=== PATIENT | female | born 2000 | race American Indian/Alaskan Native ===

== ENCOUNTER 2019-05-29 13:50 | Emergency (ER) | payer OTHER ==
[2019-05-29 15:03] VITALS: BP 98/65
--- NOTE | 2019-05-29 15:06 | Emergency Department Report ---
Chief Complaint: Vaginal Bleeding Stated Complaint: 16WKS HEAVY BLOOD FLOW Time Seen by Provider: 05/29/19 15:02 - HPI History of Present Illness: 18 y/o f p/w a cc of vag bleeding. Pt is ~ 16 weeks GA and developed vag bleeding this am. Pt denies recent intercourse or abd pain. Pt has used one maxi-pad - Exam Vital Signs: Vital Signs 05/29/19 15:02 Temperature 98.6 F Pulse Rate 85 Blood Pressure 98/65 [Right] O2 Sat by Pulse 98 Oximetry MSE screening note: Focused history and physical exam performed. Due to findings the following was ordered: cbc, shcg quant, abo/rh pelvic u/s ED Disposition for MSE Condition: Stable
[2019-05-29 16:21] LABS: Basophils # (Auto) 0.1 K/mm3 (0.0-0.1); Basophils % (Auto) 0.6 % (0.0-1.8); Eosinophils # (Auto) 0.3 K/mm3 (0.0-0.4); Eosinophils % (Auto) 2.7 % (0.0-4.3); Lymphocytes # (Auto) 2.1 K/mm3 (1.2-5.4); Lymphocytes % (Auto) 21.1 % (13.4-35.0); Mean Corpuscular HGB Conc 35 % (30-34); Mean Corpuscular Volume 87 fl (79-97); Monocytes # (Auto) 0.4 K/mm3 (0.0-0.8); Monocytes % (Auto) 4.1 % (0.0-7.3); Platelet Count 308 K/mm3 (140-440); Red Blood Count 3.89 M/mm3 (3.65-5.03); Red Cell Distribution Width 13.5 % (13.2-15.2)
--- NOTE | 2019-05-29 19:01 | Ultrasound Report ---
ULTRASOUND OBSTETRIC INDICATION / CLINICAL INFORMATION: vaginal bleeding. Clinical Gestational Age (GA): 15 weeks 6 days TECHNIQUE: Transabdominal. COMPARISON: None available. FINDINGS: There is a single intrauterine . Biparietal Diameter = 2.72 cm = 14 weeks, 6 day(s). Head Circumference = 10.52 cm = 15 weeks, 0 day(s). Abdominal Circumference = 8.76 cm = 15 weeks, 0 day(s). Femur Length = 0.93 cm = 12 weeks, 5 day(s). Average Ultrasound Age (AUA) = 14 weeks, 3 day(s). Heart Rate: 166 beats per minute. Estimated Weight in grams (if calculated): Not calculated Estimated Weight Growth Percentile (if calculated): Not calculated Position: breech. Cervix: closed. Length in cm (if measured): 3.2 cm Placenta: Left lateral and free of the os. Amniotic Fluid Volume: normal Amniotic Fluid Index (JACQUI) in cm (if calculated): Not calculated. Maternal Adnexa: No significant abnormality. Along the anterior aspect of the uterus there is a crescent-shaped solid appearing masslike area bruce uring approximately 9.7 x 1.7 x 2.5 cm. The appearance is worrisome for hemorrhage possibly placental abruption. IMPRESSION: 1. Single, living intrauterine with estimated sonographic age of 14 weeks, 3 day(s). The f emur length is measuring slightly smaller than the remainder of the parameters. 2. Possible placental abruption. There is a large crescent shaped isoechoic mass very concerning for hemorrhage and/or placental abruption. Clinical correlation recommended. COMMUNICATION: Time of Communication: [id number] [employer] Licensed Practitioner Receiving Report: brittney sutherland Signer Name: Pamela Wilson MD Signed: 05/29/2019 6:57 PM Workstation Name: [email or web address]
[2019-05-29 19:45] LABS: INR 1.11 (0.87-1.13)
[2019-05-29 19:46] LABS: Partial Thromboplastin Time 29.2 Sec. (24.2-36.6)
--- NOTE | 2019-05-29 20:07 | Emergency Department Report ---
ED HPI - General Chief complaint: Vaginal Bleeding Stated complaint: 16WKS HEAVY BLOOD FLOW Time Seen by Provider: 05/29/19 15:02 Source: patient Mode of arrival: Ambulatory Limitations: No Limitations - History of Present Illness Initial comments: 18-year-old -[place] female patient who believes herself to be around 16 weeks presents with complaints of vaginal bleeding and intermittent lower abdominal cramping pain x today. Patient is G2, P1. Patient states she has not seen an HOUSEHOLD COORDINATOR to this point in her . She rates her current pain as a 4/10 in severity and states she has gone through 1 pad today. Patient denies complications with her prior . She denies any vaginal discharge, dyspareunia, fever, hematuria, dysuria, or urinary frequency. MD Complaint: abdominal pain, vaginal bleeding -: Sudden Location: pelvis Severity scale (0 -10): 4 Quality: cramping Improves with: none - Related Data Allergies Allergy/AdvReac Type Severity Reaction Status Date / Time No Known Allergies Allergy Unverified 05/29/19 13:54 ED Review of Systems ROS: Stated complaint: 16WKS HEAVY BLOOD FLOW Other details as noted in HPI Comment: All other systems reviewed and negative Gastrointestinal: abdominal pain. denies: nausea, vomiting, diarrhea, constipation, hematemesis, melena, hematochezia Genitourinary: denies: urgency, dysuria, frequency, hematuria, discharge, dyspareunia Hematological/Lymphatic: denies: easy bleeding ED Past Medical Hx - Past Medical History Previous Medical History?: No - Surgical History Past Surgical History?: No - Social History Smoking Status: Never Smoker Substance Use Type: None ED Physical Exam - General Limitations: No Limitations General appearance: alert, in no apparent distress - Head Head exam: Present: atraumatic, normocephalic - Eye Eye exam: Present: normal appearance - ENT ENT exam: Present: mucous membranes moist - Respiratory Respiratory exam: Present: normal lung sounds bilaterally. Absent: respiratory distress - Cardiovascular Cardiovascular Exam: Present: regular rate, normal rhythm. Absent: systolic murmur, diastolic murmur, rubs, gallop - GI/Abdominal GI/Abdominal exam: Present: soft, tenderness (Suprapubic), normal bowel sounds. Absent: distended, guarding, rebound, rigid, organomegaly, mass - Speculum exam: Present: vaginal bleeding. Absent: cervical discharge - Extremities Exam Extremities exam: Present: normal inspection - Back Exam Back exam: Present: normal inspection - Neurological Exam Neurological exam: Present: alert, oriented X3 - Psychiatric Psychiatric exam: Present: normal affect, normal mood - Skin Skin exam: Present: warm, dry, intact, normal color. Absent: rash ED Course Vital Signs 05/29/19 15:02 Temperature 98.6 F Pulse Rate 85 Blood Pressure 98/65 [Right] O2 Sat by Pulse 98 Oximetry ED Medical Decision Making - Lab Data Result diagrams: 05/29/19 15:56 Lab Results 05/29/19 05/29/19 05/29/19 Range/Units 15:56 15:56 15:56 WBC 9.7 (4.5-11.0) K/mm3 RBC 3.89 (3.65-5.03) M/mm3 Hgb 12.0 (10.1-14.3) gm/dl Hct 34.0 (30.3-42.9) % MCV 87 (79-97) fl MCH 31 (28-32) pg MCHC 35 H (30-34) % RDW 13.5 (13.2-15.2) % Plt Count 308 (140-440) K/mm3 Lymph % (Auto) 21.1 (13.4-35.0) % Jay % (Auto) 4.1 (0.0-7.3) % Eos % (Auto) 2.7 (0.0-4.3) % Baso % (Auto) 0.6 (0.0-1.8) % Lymph # 2.1 (1.2-5.4) K/mm3 Jay # 0.4 (0.0-0.8) K/mm3 Eos # 0.3 (0.0-0.4) K/mm3 Baso # 0.1 (0.0-0.1) K/mm3 Seg Neutrophils % 71.5 H (40.0-70.0) % Seg Neutrophils # 6.9 (1.8-7.7) K/mm3 PT (12.2-14.9) Sec. INR (0.87-1.13) APTT (24.2-36.6) Sec. HCG, Quant 66773 H (0-4) mIU/mL Blood Type O POSITIVE 05/29/19 05/29/19 Range/Units 19:21 19:21 WBC (4.5-11.0) K/mm3 RBC (3.65-5.03) M/mm3 Hgb (10.1-14.3) gm/dl Hct (30.3-42.9) % MCV (79-97) fl MCH (28-32) pg MCHC (30-34) % RDW (13.2-15.2) % Plt Count (140-440) K/mm3 Lymph % (Auto) (13.4-35.0) % Jay % (Auto) (0.0-7.3) % Eos % (Auto) (0.0-4.3) % Baso % (Auto) (0.0-1.8) % Lymph # (1.2-5.4) K/mm3 Jay # (0.0-0.8) K/mm3 Eos # (0.0-0.4) K/mm3 Baso # (0.0-0.1) K/mm3 Seg Neutrophils % (40.0-70.0) % Seg Neutrophils # (1.8-7.7) K/mm3 PT 14.4 (12.2-14.9) Sec. INR 1.11 (0.87-1.13) APTT 29.2 (24.2-36.6) Sec. HCG, Quant (0-4) mIU/mL Blood Type O POSITIVE - Radiology Data Radiology results: report reviewed ULTRASOUND OBSTETRIC INDICATION / CLINICAL INFORMATION: vaginal bleeding. Clinical Gestational Age (GA): 15 weeks 6 days TECHNIQUE: Transabdominal. COMPARISON: None available. FINDINGS: There is a single intrauterine . Biparietal Diameter = 2.72 cm = 14 weeks, 6 day(s). Head Circumference = 10.52 cm = 15 weeks, 0 day(s). Abdominal Circumference = 8.76 cm = 15 weeks, 0 day(s). Femur Length = 0.93 cm = 12 weeks, 5 day(s). Average Ultrasound Age (AUA) = 14 weeks, 3 day(s). Heart Rate: 166 beats per minute. Estimated Weight in grams (if calculated): Not calculated Estimated Weight Growth Percentile (if calculated): Not calculated Position: breech. Cervix: closed. Length in cm (if measured): 3.2 cm Placenta: Left lateral and free of the os. Amniotic Fluid Volume: normal Amniotic Fluid Index (JACQUI) in cm (if calculated): Not calculated. Maternal Adnexa: No significant abnormality. Along the anterior aspect of the uterus there is a crescent-shaped solid appearing masslike area measuring approximately 9.7 x 1.7 x 2.5 cm. The appearance is worrisome for hemorrhage possibly placental abruption. IMPRESSION: 1. Single, living intrauterine with estimated sonographic age of 14 weeks, 3 day(s). The femur length is measuring slightly smaller than the remainder of the parameters. 2. Possible placental abruption. There is a large crescent shaped isoechoic mass very concerning for hemorrhage and/or placental abruption. Clinical correlation recommended. - Medical Decision Making 18-year-old female here today with vaginal bleeding and intermittent lower abdominal pain and . Labs are normal and UA is negative for UTI. Ultrasound shows viable 14-week 3-day with placental abruption. Discussed ultrasound findings with Dr. Graff, HOUSEHOLD COORDINATOR, who states ultrasound findings are not consistent with a placental abruption due to the gestational age being less than 20 weeks. She recommends patient be on bed rest and pelvic rest and follow-up with her office tomorrow. Patient is nontoxic appearing and stable for discharge home. Her vitals are normal. I discussed importance of bed rest and pelvic rest with patient in need for follow-up with Dr. Hernandes as soon as possible. I also discussed the possibility of patient having a threatened miscarriage. Patient verbalizes understanding Critical care attestation.: If time is entered above; I have spent that time in minutes in the direct care of this critically ill patient, excluding procedure time. ED Disposition Clinical Impression: Vaginal bleeding during , Threatened miscarriage Disposition: DC-01 TO HOME OR SELFCARE Is pt being admited?: No Condition: Stable Instructions: Threatened Miscarriage (ED) Referrals: BROWN HERNANDES MD [Staff Physician] - 24 Hours
[2019-05-29 20:30] LABS: Bilirubin,Urine NEG (Negative); Blood,Urine MOD (Negative); Color,Urine Straw (Yellow); Protein,Urine <15 mg/dL mg/dL (Negative); Urobilinogen,Urine < 2.0 mg/dL (<2.0)
== END 2019-05-29 21:18 | disposition home or self-care (01) ==
LOC: ED 13:50
DX: O20.0 Threatened abortion (principal); Z3A.14 14 weeks gestation of pregnancy
CPT/HCPCS: 36415; 76805; 81001; 84702; 85025; 85610; 85730; 86850; 86900; 86901

== ENCOUNTER 2019-12-10 06:38 | Emergency (ER) | payer MEDICAID ==
[2019-12-10 07:42] LABS: Basophils # (Auto) 0.1 K/mm3 (0.0-0.1); Basophils % (Auto) 0.5 % (0.0-1.8); Eosinophils # (Auto) 0.2 K/mm3 (0.0-0.4); Eosinophils % (Auto) 1.8 % (0.0-4.3); Hematocrit 40.9 % (30.3-42.9); Hemoglobin 13.7 gm/dl (10.1-14.3); Lymphocytes # (Auto) 1.9 K/mm3 (1.2-5.4); Lymphocytes % (Auto) 16.8 % (13.4-35.0); Mean Corpuscular HGB Conc 34 % (30-34); Mean Corpuscular Volume 86 fl (79-97); Monocytes # (Auto) 0.8 K/mm3 (0.0-0.8); Monocytes % (Auto) 6.6 % (0.0-7.3); Platelet Count 294 K/mm3 (140-440); Red Blood Count 4.76 M/mm3 (3.65-5.03); Red Cell Distribution Width 14.5 % (13.2-15.2)
[2019-12-10 07:46] LABS: Alanine Aminotransferase 13 units/L (7-56); Albumin 4.6 g/dL (3.9-5); BUN/Creatinine Ratio 10; Blood Urea Nitrogen 9 mg/dL (7-17); Calcium 9.8 mg/dL (8.4-10.2); Hemolysis Index 5
[2019-12-10] MEDS ORDERED: ONDANSETRON 4 MG/2 ML INJ IV ONE (08:39)
[2019-12-10] MEDS ORDERED: SODIUM CHLORIDE 0.9% 1000 ML 1,000 ML IV ONE (08:39)
--- NOTE | 2019-12-10 08:43 | Emergency Department Report ---
ED Abdominal Pain HPI - General Chief Complaint: Abdominal Pain Stated Complaint: STOMACH PAIN Source: patient Mode of arrival: Ambulatory Limitations: No Limitations - History of Present Illness Initial Comments: 19-year-old -[place] female presents to the emergency room complaining of 2-day history of abdominal pain with nausea and vomiting. Patient states that the pain is sharp achy and constant. She reports that is everywhere. Patient reports she does drink alcohol but has not recently. She does smoke cigarettes but denies smoking weed. She is 2 para 2 last menstrual period January 12, 2019 and she is currently on Depakote. Patient is requesting water and ice as she feels she is dehydrated. Patient has no past medical history. MD Complaint: abdominal pain Onset/Timin -: days(s) Location: diffuse Severity scale (0 -10): 10 Quality: stabbing, aching, sharp Consistency: constant Improves With: nothing Worsens With: nothing Associated Symptoms: nausea, vomiting. denies: diarrhea, fever - Related Data LMP Date: 11/12/18 (Depo) Previous Rx's Medication Instructions Recorded Last Taken Type Hyoscyamine Subl [Levsin Sl 0.125 0.125 mg SL Q6HR PRN #12 tab 12/10/19 Unknown Rx TAB] Ondansetron [Zofran Odt] 4 mg PO Q8HR PRN #12 tab.rapdis 12/10/19 Unknown Rx Allergies Allergy/AdvReac Type Severity Reaction Status Date / Time sertraline [From Zoloft] Allergy Mild Unknown Verified 12/10/19 10:19 ED Review of Systems ROS: Stated complaint: STOMACH PAIN Other details as noted in HPI Comment: All other systems reviewed and negative Gastrointestinal: abdominal pain, nausea, vomiting ED Past Medical Hx - Past Medical History Previous Medical History?: No - Surgical History Past Surgical History?: No - Social History Smoking Status: Former Smoker Substance Use Type: Alcohol - Medications Home Medications: Home Medications Medication Instructions Recorded Confirmed Last Taken Type Hyoscyamine Subl [Levsin Sl 0.125 0.125 mg SL Q6HR PRN #12 tab 12/10/19 Unknown Rx TAB] Ondansetron [Zofran Odt] 4 mg PO Q8HR PRN #12 tab.rapdis 12/10/19 Unknown Rx ED Physical Exam - General Limitations: No Limitations General appearance: alert, in distress - Head Head exam: Present: atraumatic, normocephalic - Eye Eye exam: Present: normal appearance - ENT ENT exam: Present: mucous membranes dry - Neck Neck exam: Present: normal inspection, full ROM - GI/Abdominal GI/Abdominal exam: Present: soft, tenderness, normal bowel sounds. Absent: distended - Extremities Exam Extremities exam: Present: normal inspection, full ROM - Back Exam Back exam: Present: full ROM, tenderness, CVA tenderness (R), CVA tenderness (L) - Neurological Exam Neurological exam: Present: alert, oriented X3 - Psychiatric Psychiatric exam: Present: normal affect, normal mood - Skin Skin exam: Present: warm, dry, intact, normal color. Absent: rash ED Course Vital Signs 12/10/19 12/10/19 12/10/19 06:49 06:50 08:58 Temperature 97.9 F 98.3 F Pulse Rate 71 71 Respiratory 18 20 Rate Blood Pressure 147/92 Blood Pressure 120/93 [Right] O2 Sat by Pulse 100 100 Oximetry ED Medical Decision Making - Lab Data Result diagrams: 12/10/19 07:09 12/10/19 07:09 - Radiology Data Radiology results: report reviewed [facility] [address] [place] [address] Cat Scan Report Signed Patient: JEREMY KEYES MR#: [id number] : 2000 Acct:[id number] Age/Sex: 19 / F ADM Date: 12/10/19 Loc: ED Attending Dr: Ordering Physician: JI MACHADO Date of Service: 12/10/19 Procedure(s): CT abdomen pelvis w con Accession Number(s): [id number] cc: JI MACHADO CT ABDOMEN AND PELVIS WITH CONTRAST INDICATION: Severe lower abdominal pain. TECHNIQUE: Axial CT images were obtained through the abdomen and pelvis after 100 cc Omni [address] scans at this location are performed using CT dose reduction for ALARA by means of automated exposure control. COMPARISON: None available. FINDINGS: LOWER CHEST: No significant abnormality. LIVER: 1 cm cyst posterior hepatic segment. GALLBLADDER: No significant abnormality. BILE DUCTS: No significant abnormality. PANCREAS: No significant abnormality. SPLEEN: No significant abnormality. ADRENALS: No significant abnormality. RIGHT KIDNEY and URETER: No significant abnormality. LEFT KIDNEY and URETER: No significant abnormality. STOMACH and SMALL BOWEL: Moderate thickening and mucosal enhancement involving terminal ileum characteristic for probable inflammatory bowel disease/Crohn's COLON: No significant abnormality. APPENDIX: Not visualized secondary to paucity of intraabdominal fat and lack of oral contrast PERITONEUM: No free fluid. No free air. No fluid collection. LYMPH NODES: No significant adenopathy. AORTA and ARTERIES: No significant abnormality. IVC and VEINS: No significant abnormality. URINARY BLADDER: No significant abnormality. REPRODUCTIVE ORGANS: No significant abnormality. ADDITIONAL FINDINGS: None. SKELETAL SYSTEM: No significant abnormality. IMPRESSION: 1. Probable terminal ileitis/Crohn's disease. 2. Appendix not visualized. Repeat CT abdomen and pelvis with 90 minute to 2 hour delayed oral contrast may be useful to better characterize the Crohn's disease and to exclude appendicitis if clinical concern for appendicitis remains high. Signer Name: Maverick Tiwari MD Signed: 12/10/2019 11:10 AM Workstation Name: [id number] Transcribed By: TL Dictated By: Maverick Tiwari MD Electronically Authenticated By: Maverick Tiwari MD Signed Date/Time: 12/10/19 1110 DD/ 1105 TD/TT: [facility] [address] [place] [address] Cat Scan Report Signed with Addenda Patient: JEREMY KEYES MR#: [id number] : 2000 Acct:[id number] Age/Sex: 19 / F ADM Date: 12/10/19 Loc: ED Attending Dr: Ordering Physician: JI MACHADO Date of Service: 12/10/19 Procedure(s): CT abdomen pelvis w con Accession Number(s): [id number] cc: JI MACHADO ADDENDUM A normal appendix is seen within the subhepatic region on axial image 269. Repeat study with oral contrast would only be useful to evaluate the terminal ileum. I do not see any CT evidence for appendicitis or other acute inflammatory process Signer Name: Maverick Tiwari MD Signed: 12/10/2019 11:48 AM Workstation Name: [id number] Addendum Transcribed By: TL Addendum Dictated By: Maverick Tiwari MD Addendum Electronically Authenticated By: Maverick Tiwari MD Addendum Signed Date/Time: 12/10/19 1148 DD/ TD/TT: / CT ABDOMEN AND PELVIS WITH CONTRAST INDICATION: Severe lower abdominal pain. TECHNIQUE: Axial CT images were obtained through the abdomen and pelvis after 100 cc Omni [address] scans at this location are performed using CT dose reduction for ALARA by means of automated exposure control. COMPARISON: None available. FINDINGS: LOWER CHEST: No significant abnormality. LIVER: 1 cm cyst posterior hepatic segment. GALLBLADDER: No significant abnormality. BILE DUCTS: No significant abnormality. PANCREAS: No significant abnormality. SPLEEN: No significant abnormality. ADRENALS: No significant abnormality. RIGHT KIDNEY and URETER: No significant abnormality. LEFT KIDNEY and URETER: No significant abnormality. STOMACH and SMALL BOWEL: Moderate thickening and mucosal enhancement involving terminal ileum characteristic for probable inflammatory bowel disease/Crohn's COLON: No significant abnormality. APPENDIX: Not visualized secondary to paucity of intraabdominal fat and lack of oral contrast PERITONEUM: No free fluid. No free air. No fluid collection. LYMPH NODES: No significant adenopathy. AORTA and ARTERIES: No significant abnormality. IVC and VEINS: No significant abnormality. URINARY BLADDER: No significant abnormality. REPRODUCTIVE ORGANS: No significant abnormality. ADDITIONAL FINDINGS: None. SKELETAL SYSTEM: No significant abnormality. IMPRESSION: 1. Probable terminal ileitis/Crohn's disease. 2. Appendix not visualized. Repeat CT abdomen and pelvis with 90 minute to 2 hour delayed oral contrast may be useful to better characterize the Crohn's disease and to exclude appendicitis if clinical concern for appendicitis remains high. Signer Name: Maverick Tiwari MD Signed: 12/10/2019 11:10 AM Workstation Name: [id number] Transcribed By: TL Dictated By: Maverick Tiwari MD Electronically Authenticated By: Maverick Tiwari MD Signed Date/Time: 12/10/19 1110 DD/ 1105 TD/TT: [facility] [address] [place] [address] Cat Scan Report Signed Patient: JEREMY KEYES MR#: [id number] : 2000 Acct:[id number] Age/Sex: 19 / F ADM Date: 12/10/19 Loc: ED Attending Dr: Ordering Physician: JI MACHADO Date of Service: 12/10/19 Procedure(s): CT abdomen pelvis wo con Accession Number(s): [id number] cc: JI MACHADO CT ABDOMEN AND PELVIS WITHOUT CONTRAST INDICATION / CLINICAL INFORMATION: MAIN. TECHNIQUE: Axial CT images were obtained through the abdomen and pelvis without IV contrast. All CT scans at this location are performed using CT dose reduction for ALARA by means of automated exposure control. COMPARISON: Prior CT dated 12/10/2019. FINDINGS: LOWER CHEST: No significant abnormality. LIVER: Stable simple hepatic cyst right hepatic lobe. GALLBLADDER: No significant abnormality. BILE DUCTS: No significant abnormality. PANCREAS: No significant abnormality. SPLEEN: No significant abnormality. ADRENALS: No significant abnormality. RIGHT KIDNEY / URETER: Minimal retained contrast is noted within the collecting system.. LEFT KIDNEY / URETER: Minimal retained contrast is noted within the collecting system. STOMACH / SMALL BOWEL: Previously noted moderate thickening of the terminal ileum is again noted and relatively unchanged from prior. COLON: No significant abnormality. APPENDIX: The appendix is still not well-visualized on this exam. PERITONEUM: No free fluid. No free air. No fluid collection. LYMPH NODES: No significant adenopathy. AORTA / ARTERIES: No significant abnormality. IVC / VEINS: No significant abnormality. URINARY BLADDER: No significant abnormality. REPRODUCTIVE ORGANS: No significant abnormality. ADDITIONAL FINDINGS: None. SKELETAL SYSTEM: No significant abnormality. IMPRESSION: 1. The appendix is still not well-visualized on this exam. 2. Previously noted findings concerning for terminal ileitis/Crohn's disease are similar. Signer Name: Rene Gallego MD Signed: 12/10/2019 2:40 PM Workstation Name: [id number] Transcribed By: Dictated By: RENE GALLEGO Electronically Authenticated By: RENE GALLEGO Signed Date/Time: 12/10/19 1440 DD/ 1433 TD/TT: - Medical Decision Making 19-year-old -[place] female presents to the emergency room complaining of 2-day history of abdominal pain with nausea and vomiting. Patient states that the pain is sharp achy and constant. She reports that is everywhere. Patient reports she does drink alcohol but has not recently. She does smoke cigarettes but denies smoking weed. She is 2 para 2 last menstrual period January 12, 2019 and she is currently on Depakote. Patient is requesting water and ice as she feels she is dehydrated. Patient has no past medical history. IV, normal saline, IV Zofran. CT abdomen with contrast and urine plus hepatic panel. Critical care attestation.: If time is entered above; I have spent that time in minutes in the direct care of this critically ill patient, excluding procedure time. ED Disposition Clinical Impression: Abdominal pain Disposition: DC-01 TO HOME OR SELFCARE Is pt being admited?: No Does the pt Need Aspirin: No Condition: Stable Instructions: Abdominal Pain (ED) Additional Instructions: Please take medications as needed. 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 Be sure to increase your water intake advance your diet as tolerated. Prescriptions: Hyoscyamine Subl [Levsin Sl 0.125 TAB] 0.125 mg SL Q6HR PRN #12 tab PRN Reason: Pain , Severe (7-10) Ondansetron [Zofran Odt] 4 mg PO Q8HR PRN #12 tab.rapdis PRN Reason: Nausea And Vomiting Referrals: PRIMARY CARE, [Primary Care Provider] - 3-5 Days [facility] [Provider Group] - 3-5 Days Forms: Work/School Release Form(ED)
[2019-12-10 09:00] VITALS: BP 120/93
--- NOTE | 2019-12-10 11:15 | Cat Scan Report ---
CT ABDOMEN AND PELVIS WITH CONTRAST INDICATION: Severe lower abdominal pain. TECHNIQUE: Axial CT images were obtained through the abdomen and pelvis after 100 cc Omni [address] scans at this location are performed using CT dose reduction for ALARA by means of automated expos ure control. COMPARISON: None available. FINDINGS: LOWER CHEST: No significant abnormality. LIVER: 1 cm cyst posterior hepatic segment. GALLBLADDER: No significant abnormality. BILE DUCTS: No significant abnormality. PANCREAS: No significant abnormality. SPLEEN: No significant abnormality. ADRENALS: No significant abnormality. RIGHT KIDNEY and URETER: No significant abnormality. LEFT KIDNEY and URETER: No significant abnormality. STOMACH and SMALL BOWEL: Moderate thickening and mucosal enhancement involving terminal ileum charact eristic for probable inflammatory bowel disease/Crohn's COLON: No significant abnormality. APPENDIX: Not visualized secondary to paucity of intraabdominal fat and lack of oral contrast PERITONEUM: No free fluid. No free air. No fluid collection. LYMPH NODES: No significant adenopathy. AORTA and ARTERIES: No significant abnormality. IVC and VEINS: No significant abnormality. URINARY BLADDER: No significant abnormality. REPRODUCTIVE ORGANS: No significant abnormality. ADDITIONAL FINDINGS: None. SKELETAL SYSTEM: No significant abnormality. IMPRESSION: 1. Probable terminal ileitis/Crohn's disease. 2. Appendix not visualized. Repeat CT abdomen and pelvis with 90 minute to [address] may be useful to better characterize the Crohn's disease and to exclude appendicitis if clinical c oncern for appendicitis remains high. Signer Name: Maverick Tiwari MD Signed: 12/10/2019 11:10 AM Workstation Name: [id number]
--- NOTE | 2019-12-10 14:44 | Cat Scan Report ---
CT ABDOMEN AND PELVIS WITHOUT CONTRAST INDICATION / CLINICAL INFORMATION: MAIN. TECHNIQUE: Axial CT images were obtained through the abdomen and pelvis without IV contrast. All CT scans at [facility] location are performed using CT dose reduction for ALARA by means of automated exposure control. COMPARISON: Prior CT dated 12/10/2019. FINDINGS: LOWER CHEST: No significant abnormality. LIVER: Stable simple hepatic cyst right hepatic lobe. GALLBLADDER: No significant abnormality. BILE DUCTS: No significant abnormality. PANCREAS: No significant abnormality. SPLEEN: No significant abnormality. ADRENALS: No significant abnormality. RIGHT KIDNEY / URETER: Minimal retained contrast is noted within the collecting system.. LEFT KIDNEY / URETER: Minimal retained contrast is noted within the collecting system. STOMACH / SMALL BOWEL: Previously noted moderate thickening of the terminal ileum is again noted and relatively unchanged from prior. COLON: No significant abnormality. APPENDIX: The appendix is still not well-visualized on this exam. PERITONEUM: No free fluid. No free air. No fluid collection. LYMPH NODES: No significant adenopathy. AORTA / ARTERIES: No significant abnormality. IVC / VEINS: No significant abnormality. URINARY BLADDER: No significant abnormality. REPRODUCTIVE ORGANS: No significant abnormality. ADDITIONAL FINDINGS: None. SKELETAL SYSTEM: No significant abnormality. IMPRESSION: 1. The appendix is still not well-visualized on this exam. 2. Previously noted findings concerning for terminal ileitis/Crohn's disease are similar. Signer Name: Rene Hankins MD Signed: 12/10/2019 2:40 PM Workstation Name: [id number]
[2019-12-10 15:20] LABS: Bilirubin,Urine NEG (Negative); Blood,Urine NEG (Negative); Color,Urine Yellow (Yellow); Mucus,Urine FEW /HPF; Urobilinogen,Urine < 2.0 mg/dL (<2.0); WBC,Urine > 182.0 /HPF (0.0-6.0)
== END 2019-12-10 16:40 | disposition home or self-care (01) ==
LOC: ED 06:38
DX: R10.84 Generalized abdominal pain (principal); R11.2 Nausea with vomiting, unspecified; Z87.891 Personal history of nicotine dependence; Z88.6 Allergy status to analgesic agent
CPT/HCPCS: 36415; 74176; 74177; 80053; 81001; 83690; 84703; 85025; 96361; 96374; 99284; J2405; J7030; Q9967